=== PATIENT | male | born 1960 | race Hispanic/Latino ===

== ENCOUNTER 2022-11-05 07:59 | Day surgery (SDC) | payer BC, OTHER ==
[2022-11-04 13:43] VITALS: BP 123/71; PULSE 63; RESP 20
[2022-11-04 13:56] LABS: BASOPHILS # (AUTO) 0.06 K/uL (0.00-0.20); BASOPHILS % (AUTO) 0.6 % (0.0-5.0); EOSINOPHILS # (AUTO) 0.22 K/uL (0.00-0.70); EOSINOPHILS % (AUTO) 2.3 % (0.0-8.0); HEMATOCRIT 45.2 % (42-54); IMMATURE GRANULOCYTE ABSOLUTE 0.02 K/uL (0-1); LYMPHOCYTES # (AUTO) 3.7 K/uL (1.0-4.8); LYMPHOCYTES % (AUTO) 37.9 % (21.0-51.0); MEAN CORPUSCULAR HEMOGLOBIN 29.4 pg (27.0-33.0); MEAN CORPUSCULAR HGB CONC 34.5 g/dL (32.0-36.0); MEAN CORPUSCULAR VOLUME 85.1 fL (79-99); MONOCYTES # (AUTO) 0.8 K/uL (0.1-1.0); MONOCYTES % (AUTO) 8.1 % (3.0-13.0); NEUTROPHILS # (AUTO) 4.9 K/uL (1.8-7.7); NEUTROPHILS % (AUTO) 50.9 % (40.0-77.0); PLATELET COUNT (AUTO) 194 K/uL (130-400); RED BLOOD CELL COUNT(AUTO) 5.31 MIL/uL (4.50-6.20); RED CELL DISTRIBUTION WIDTH 12.8 % (11.0-15.5); WHITE BLOOD COUNT (AUTO) 9.6 K/uL (4.8-10.8)
[2022-11-04 13:59] LABS: CREATININE 1.5 mg/dL (0.5-1.5)
[2022-11-04 14:10] LABS: INR 1.15 (0.85-1.15); PROTHROMBIN TIME 13.2 SEC (9.6-11.6)
[2022-11-04 14:12] LABS: PARTIAL THROMBOPLASTIN TIME 37.2 SEC (26.3-35.5)
[~2022-11-05] VITALS: Ht 175.3 cm; Wt 135.8 kg
[2022-11-05] VITALS (13 sets, daily range): BP systolic 94–121; BP diastolic 61–78; PULSE 47–77; RESP 12–16
[~2022-11-05 07:59] MED LIST: AMIO200T68 PO; METO25TA6 PO; RIVA20TA PO; TRIA1CAP87 PO
[2022-11-05] MEDS ORDERED: LIDOCAINE PF 100MG/5ML (2%) SYRINGE 5ML ONE (09:03)
[2022-11-05] MEDS ORDERED: PROPOFOL 10 MG/ML 20ML VIAL IV ONE ×2 (09:03→09:19)
[2022-11-05] MEDS ORDERED: LIDOCAINE HCL 2% VISCOUS 15 ML UDCUP ONE (09:03)
[2022-11-05] MEDS ORDERED: FENTANYL CITRATE PF 50 MCG/1 ML 2ML VIAL ONE (09:35)
[2022-11-05] MEDS ORDERED: MIDAZOLAM HCL 1 MG/ML 2ML VIAL ONE (09:35)
== END 2022-11-05 11:00 | disposition home or self-care (01) ==
LOC: DAH 07:59 → EDSTATUS 08:00 → DAH 11:00
PROVIDERS: ATTEND Internal Medicine Interventional Cardiology
DX: I48.11 Longstanding persistent atrial fibrillation (principal); I34.0 Nonrheumatic mitral (valve) insufficiency; Z79.01 Long term (current) use of anticoagulants; Z79.899 Other long term (current) drug therapy; Z98.890 Other specified postprocedural states
CPT/HCPCS: 80048; 85025; 85610; 85730; 36415; 71045; 93005 ×2; 92960; 93325; 93312; J3010; J2001; J2250; J2704; A4615; A4215; A4223 ×3; A7002; A4222; A4221; A4663; A4216; A4606; J3490